=== PATIENT | female | born 1990 | race Caucasian/White ===

== ENCOUNTER 2021-12-03 19:15 | Day surgery (SDC) | payer BC ==
[2021-12-03 19:53] VITALS: BMI 36.0
[2021-12-03] MEDS ORDERED: hydrALAZINE 20 MG/ML VIAL SLOW IVP PRN (20:17)
[2021-12-03] MEDS ORDERED: Loperamide HCl 1 MG/7.5 ML UDCUP PO PRN (20:20)
[2021-12-03] MEDS ORDERED: Lactated Ringer's 1,000 ML IV SCH (20:30)
[2021-12-03 20:35] LABS: #Eosinphils 0.1 10x3/uL (0.0-0.5); #Monocytes 0.9 10x3/uL (0.0-1.1); #Neutrophils 6.2 10x3/uL (1.5-8.4); %Basophils 0.2 % (0.0-2.0); %Eosinophils 0.6 % (0.0-6.0); %Lymphocytes 14.8 % (18.0-47.0); %Monocytes 10.4 % (0.0-10.0); %Neutrophils 73.5 % (40.0-75.0); Hemoglobin 11.7 g/dL (12.0-15.5); Mean Corpuscular HGB CONC 34.6 g/dL (32.0-36.0); Mean Corpuscular Hemoglobin 28.6 pg (27.0-33.0); Mean Corpuscular Volume 82.6 fl (81.6-98.3); Mean Platelet Volume 9.6 fl (7.4-10.4); Platelet Count 181 10x3/uL (150-450); RBC Distribution Width 14.4 % (11.5-14.5); Red Blood Cell (RBC) Count 4.09 10x6/uL (3.90-5.03); White Blood Cell (WBC) Count 8.4 10x3/uL (3.5-10.5)
[2021-12-03 20:49] LABS: ALT (SGPT) 26 U/L (8-55); AST (SGOT) 28 U/L (5-34); Albumin 3.8 g/dL (3.5-5.0); Alkaline Phosphatase 131 U/L (40-110); Anion Gap 15 mmol/L (10-20); BUN (Urea Nitrogen) 8 mg/dL (7.0-18.7); Bilirubin, Total 0.4 mg/dL (0.2-1.2); Calc. Creatinine Clearance 205 mL/min (70-130); Carbon Dioxide 19 mmol/L (22-29); Chloride 106 mmol/L (98-107); Globulin 2.9 g/dL (2.4-3.5); Glucose 82 mg/dL (70-105); Potassium 3.9 mmol/L (3.5-5.1); Protein, Total 6.7 g/dL (6.0-8.3); Sodium 136 mmol/L (136-145)
[2021-12-03 21:15] LABS: Bilirubin Neg (Negative); Blood, Urine Negative (Negative); Clarity Clear (Clear); Glucose, Urine (Dipstick) Normal (Negative); Ketone, Urine Negative (Negative); Leukocyte Negative (Negative); Nitrite Negative (Negative); Protein, Urine (Dipstick) Negative (Neg-Trace); Urobilinogen Normal mg/dL (Less than 2)
== END 2021-12-03 21:58 | disposition home or self-care (01) ==
LOC: CSHLD/OP 19:15
PROVIDERS: ATTEND Obstetrics & Gynecology
DX: O99.891 Other specified diseases and conditions complicating pregnancy (principal); R19.7 Diarrhea, unspecified; O98.513 Other viral diseases complicating pregnancy, third trimester; B34.9 Viral infection, unspecified; Z3A.37 37 weeks gestation of pregnancy
CPT/HCPCS: 36415; 80053; 81003; 85025; 96360; 99283

== ENCOUNTER 2021-12-25 11:05 | Inpatient (IN) | payer BC ==
[~2021-12-25 11:05] MED LIST: Bupivacaine 0.25% HCL 30 ML VIAL ONE
[2021-12-25] MEDS ORDERED: Ibuprofen 800 MG TAB PO PRN (11:55)
[2021-12-25] MEDS ORDERED: Methylergonovine 0.2 MG/ML VIAL IM PRN ×2 (11:55→22:39)
[2021-12-25] MEDS ORDERED: Ondansetron PF 4 MG/2 ML Vial IVP PRN ×3 (11:55→22:39)
[2021-12-25] MEDS ORDERED: Misoprostol 200 MCG TAB PR PRN (11:55)
[2021-12-25] MEDS ORDERED: Lidocaine 1% (PF) 30 ML VIAL SC PRN (11:55)
[2021-12-25] MEDS ORDERED: Butorphanol Tartrate 1 MG/ML VIAL SLOW IVP PRN (11:55)
[2021-12-25] MEDS ORDERED: Diphenoxylate HCl/Atropine Tablet PO PRN ×2 (11:55)
[2021-12-25] MEDS ORDERED: Carboprost 250 MCG/ML AMP IM PRN (11:55)
[2021-12-25] MEDS ORDERED: HYDROcodone/Acetaminophen 5/325 mg Tablet PO PRN ×4 (11:55→22:39)
[2021-12-25] MEDS ORDERED: hydrALAZINE 20 MG/ML VIAL SLOW IVP PRN ×2 (11:55→22:39)
[2021-12-25] MEDS ORDERED: Promethazine HCl 25 MG/ML VIAL IM PRN ×2 (11:55→14:26)
[2021-12-25 12:15] LABS: Hemoglobin 11.6 g/dL (12.0-15.5); Mean Corpuscular Hemoglobin 28.5 pg (27.0-33.0); Mean Corpuscular Volume 86.5 fl (81.6-98.3); Mean Platelet Volume 10.4 fl (7.4-10.4); Platelet Count 169 10x3/uL (150-450); RBC Distribution Width 14.3 % (11.5-14.5); Red Blood Cell (RBC) Count 4.07 10x6/uL (3.90-5.03); White Blood Cell (WBC) Count 14.1 10x3/uL (3.5-10.5)
[2021-12-25 12:20] VITALS: BMI 36.5
[2021-12-25] MEDS: Lactated Ringer's 1,000 ML IV PRN ×2 (12:35→15:07)
[2021-12-25 12:57] LABS: Hep B Surf Ag Non-Reactive S/CO (NonReactive); Syphilis Antibody Nonreactive (Nonreactive); Syphilis Antibody Index 0.02 S/CO (<1.00 Non-Reactive)
[2021-12-25 13:14] LABS: SARS-CoV-2 NAA Rapid Test Not Detected (NotDetected)
[2021-12-25] MEDS ORDERED: Fentanyl 2 mcg/Bup 0.1% Cadd 100 ML ONE (13:14)
[2021-12-25 13:27] LABS: HBSAg Index 0.18 S/CO (0-0.99)
[2021-12-25] MEDS ORDERED: ePHEDrine Sulfate 50 MG/10 ML VIAL SLOW IVP PRN (14:26)
[2021-12-25] MEDS ORDERED: Acetaminophen 325 MG TAB PO PRN (14:26)
[2021-12-25] MEDS ORDERED: Hydrocerin (Eucerin) Cream 120 gm Jar TOP PRN (14:26)
[2021-12-25] MEDS ORDERED: diphenhydrAMINE 50 MG/ML VIAL IVP PRN (14:26)
[2021-12-25] MEDS ORDERED: Naloxone HCl 0.4 mg/ml Vial IVP PRN ×2 (14:26)
[2021-12-25] MEDS ORDERED: Lactated Ringer's 500 ML IV PRN (14:26)
[2021-12-25] MEDS ORDERED: Communication Order-Pharmacy FS SCH (14:30)
[2021-12-25] MEDS ORDERED: Fentanyl 2 mcg/Bupivacaine 0.1% Cassette 100 ML EPIDURAL SCH (14:30)
[2021-12-25] MEDS: NS w/ Oxytocin 30 units 500 ML IV SCH ×2 (17:07→20:16)
[2021-12-25] MEDS ORDERED: NS w/ Oxytocin 10 units 500 ML IV SCH (17:15)
[2021-12-25 20:08] LABS: pH (Cord, venous) 7.384 (7.250-7.350)
[2021-12-25] MEDS ORDERED: NS w/ Oxytocin 30 units 500 ML IV SCH (22:00)
[2021-12-25] MEDS ORDERED: Misoprostol 200 MCG TAB VAG PRN (22:39)
[2021-12-25] MEDS ORDERED: Benzocaine-Menthol 82.5 ML CAN TOP PRN (22:39)
[2021-12-25] MEDS ORDERED: Boostrix 0.5 ML (Tdap) VIAL IM ONE (22:39)
[2021-12-25] MEDS ORDERED: Milk Of Magnesia 30 ML UDCUP PO PRN (22:39)
[2021-12-25] MEDS ORDERED: Lanolin Ointment 7 GM TUBE TOP PRN (22:39)
[2021-12-25] MEDS ORDERED: Bisacodyl 10 MG SUPP PR PRN (22:39)
[2021-12-25] MEDS ORDERED: Ibuprofen 800 MG TAB PO SCH (23:15)
[2021-12-25] MEDS ORDERED: Docusate 100 MG CAP PO SCH (23:15)
[2021-12-26] MEDS: Ibuprofen 800 MG TAB PO SCH ×3 (05:38→21:21)
[2021-12-26] MEDS: Ferrous Sulfate 325 MG TAB PO SCH ×2 (08:28→14:23)
[2021-12-26] MEDS ORDERED: Prenatal Vitamin 1 TAB PO SCH (09:00)
[2021-12-26] MEDS: Docusate 100 MG CAP PO SCH ×2 (09:06→21:21)
[2021-12-26 20:13] VITALS: BP 113/74; TEMP 98.3
== END 2021-12-26 22:25 | disposition home or self-care (01) | DRG 807 ==
LOC: CSHLD/OP 11:05 → CSHLD 14:01 → CSHPP 21:05
PROVIDERS: ADMIT Student in an Organized Health Care Education/Training Program; ATTEND Student in an Organized Health Care Education/Training Program
PROC: 10E0XZZ Delivery of Products of Conception, External Approach (ICD-10-PCS; principal; 2021-12-25)
DX: O42.02 Full-term premature rupture of membranes, onset of labor within 24 hours of rupture (principal); Z37.0 Single live birth; Z20.822 Contact with and (suspected) exposure to COVID-19; Z3A.40 40 weeks gestation of pregnancy
CPT/HCPCS: 36415; 82805; 85027; 86780; 86850; 86900; 86901; 87340; J2590; J7120; S0020; U0002